=== PATIENT | female | born 1985 | race Caucasian/White ===

== ENCOUNTER 2019-05-14 21:50 | Emergency (ER) | payer MEDICAID ==
[~2019-05-14] VITALS: Ht 167.6 cm; Wt 113.4 kg
[2019-05-14 22:05] VITALS: BP 134/88
--- NOTE | 2019-05-14 22:08 | NUR ---
TO LOBBY A/W BED AMBULATORY
--- NOTE | 2019-05-14 22:29 | NUR ---
PT TAKEN TO BED 5
--- NOTE | 2019-05-14 23:20 | NUR ---
Dr. Hernandez examining patient.
[2019-05-14 23:30] VITALS: BP 134/88
--- NOTE | 2019-05-14 23:30 | NUR ---
Patient discharged with v/s stable. Written and verbal after care instructions given and explained. Patient alert, oriented and verbalized understanding of instructions. Ambulatory with steady gait. All questions addressed prior to discharge. ID band removed. Patient advised to follow up with PMD. Rx of AUGMENTIN AND TESSALON PERLES WAS given. Patient educated on indication of medication including possible reaction and side effects. Opportunity to ask questions provided and answered. PT WAS ASSESSED AND D/C BY DR. DIAZ
== END 2019-05-14 23:30 | disposition home or self-care (01) ==
LOC: MED 21:50
DX: J02.9 Acute pharyngitis, unspecified (principal)
CPT/HCPCS: 99283